=== PATIENT | male | born 1990 | race African-American/Black ===

== ENCOUNTER 2019-10-31 10:51 | Emergency (ER) | payer MEDICAID ==
[~2019-10-31] VITALS: Ht 185.4 cm; Wt 61.2 kg
--- NOTE | 2019-10-31 11:15 | NUR ---
ED Nurse Pt walked in from home c/o pressure when he urinated x 2 days. He is also complaining of rectal pain 5/10. Respirations are even and unlabored on room air. No SOB. Vital Signs stable as documented.
--- NOTE | 2019-10-31 11:29 | NUR ---
ED Nurse Note: voided urine sent to lab
[2019-10-31] MEDS ORDERED: Lidocaine 1% MPF 10mg/ml 5ml INJ ONE (11:30)
[2019-10-31] MEDS ORDERED: Azithromycin 250mg tab ORAL ONE (11:30)
[2019-10-31 11:38] VITALS: BP 118/69
[2019-10-31 11:43] LABS: APPEARANCE,URINE CLEAR; BILIRUBIN, URINE NEGATIVE (NEGATIVE); GLUCOSE, URINE (UA) NEGATIVE (NEGATIVE); KETONES,URINE NEGATIVE (NEGATIVE); LEUKOCYTE ESTERASE ,URINE NEGATIVE (NEGATIVE); NITRITE,URINE NEGATIVE (NEGATIVE); PH,URINE 5 (4.5-8.0); PROTEIN,URINE 1+ (NEGATIVE); UROBILINOGEN,URINE 4 MG/DL (0.0-1.0)
[2019-10-31 11:44] LABS: COLOR,URINE YELLOW
[2019-10-31] MEDS ORDERED: LD2JL30 TOPIC (12:21)
[2019-10-31] MEDS ORDERED: ANUSOL-HC30 GM RC (12:21)
[2019-10-31] MEDS ORDERED: COLACE100 MG ORAL (12:21)
--- NOTE | 2019-10-31 12:33 | NUR ---
ER DISCHARGE NOTE: Patient is cleared to be discharged per ERMD, pt is aox4, on room air, with stable vital signs. pt was given dc and prescription instructions, pt was able to verbalize understanding, pt id band removed. pt is able to ambulate with steady gait. pt took all belongings.
--- NOTE | 2019-10-31 12:37 | Emergency Room Report ---
History of Present Illness General Chief Complaint: Male Urogenital Problems Source: Patient Present Illness HPI 29-year-old male presents ED for evaluation. Complaining of pain to his rectal area. Has been there for 2 weeks. Painful with defecation. States he might be constipated as well. Noted some blood in his stool. Pain is dull, 8 out of 10, nonradiating. Also notes some dysuria. Denies any discharge. Concern for STD. States he is HIV positive. States he has had unprotected sex. Denies fevers or chills. Denies flank pain. No other aggravating relieving factors. Denies any other associated symptoms Allergies: Coded Allergies: No Known Allergies (Unverified , 10/31/19) Patient History Past Medical History: HIV Past Surgical History: none Pertinent Family History: none Reviewed Nursing Documentation: PMH: Agreed; PSxH: Agreed Nursing Documentation-PMH Past Medical History: No History, Except For Hx Cardiac Problems: Yes - HIV Review of Systems All Other Systems: negative except mentioned in HPI Physical Exam Vital Signs Date Time Temp Pulse Resp B/P (MAP) Pulse Ox O2 Delivery O2 Flow Rate FiO2 10/31/19 10:57 98.1 82 19 118/69 (85) 97 Room Air Sp02 EP Interpretation: reviewed, normal General Appearance: no apparent distress, alert, GCS 15, non-toxic Head: normocephalic, atraumatic Eyes: bilateral eye normal inspection, bilateral eye PERRL ENT: hearing grossly normal, normal pharynx, no angioedema, normal voice Neck: full range of motion, supple/symm/no masses Respiratory: chest non-tender, lungs clear, normal breath sounds, speaking full sentences Cardiovascular #1: regular rate, rhythm, no edema Cardiovascular #2: 2+ carotid (R), 2+ carotid (L), 2+ radial (R), 2+ radial (L) , 2+ dorsalis pedis (R), 2+ dorsalis pedis (L) Gastrointestinal: normal bowel sounds, non tender, soft, non-distended, no guarding, no rebound Rectal: other - anal fissure 3 oclock position Genitourinary: normal inspection, no CVA tenderness Musculoskeletal: back normal, normal range of motion, gait/station normal, non- tender Neurologic: alert, motor strength/tone normal, oriented x3, sensory intact, responsive, speech normal Psychiatric: judgement/insight normal, memory normal, mood/affect normal, no suicidal/homicidal ideation Reflexes: 3+ bicep (R), 3+ bicep (L), 3+ tricep (R), 3+ tricep (L), 3+ knee (R) , 3+ knee (L) Lymphatic: no adenopathy Medical Decision Making Diagnostic Impression: Primary Impression: Exposure to STD Additional Impression: Anal fissure ER Course Hospital Course 29-year-old male presents with dysuria, rectal pain. History of unprotected sex Differential diagnoses include: trichimonas, gonorrhea, chlamydia, UTI Clinical course Patient placed on stretcher. After initial history physical exam reveals a young male in no acute distress. On exam there is a anal fissure noted at the 3 o'clock position. No active bleeding. Remainder of exam unremarkable. UA negative Treat clinically for presumed STI. Given azithromycin/Rocephin in ED I discussed findings with patient. Will discharge to home with lidocaine jelly , Anusol cream, Colace. Safe for discharge for close outpatient follow-up. States that he is currently being set up for PMD Diagnosis -exposure to STD, anal fissure Stable and discharged home with prescriptions for Rx anusol, lidocaine jelly, colace. Instructed to followup with PMD. Return to ED if symptoms recur or worsen Labs Test 10/31/19 11:30 Urine Color Yellow Urine Appearance Clear Urine pH 5 (4.5-8.0) Urine Specific [place] 1.025 (1.005-1.035) Urine Protein 1+ (NEGATIVE) Urine Glucose (UA) Negative (NEGATIVE) Urine Ketones Negative (NEGATIVE) Urine Blood Negative (NEGATIVE) Urine Nitrite Negative (NEGATIVE) Urine Bilirubin Negative (NEGATIVE) Urine Urobilinogen 4 MG/DL (0.0-1.0) Urine Leukocyte Esterase Negative (NEGATIVE) Urine RBC 0-2 /HPF (0 - 0) Urine WBC 0-2 /HPF (0 - 0) Urine Squamous Epithelial Cells None /LPF (NONE/OCC) Urine Calcium Oxalate Crystals Occasional /LPF (NONE) Urine Bacteria None /HPF (NONE) Last Vital Signs Date Time Temp Pulse Resp B/P (MAP) Pulse Ox O2 Delivery O2 Flow Rate FiO2 10/31/19 11:38 98.1 75 19 118/69 97 Room Air Status: improved Disposition: HOME, SELF-CARE Condition: Stable Scripts Docusate Sodium* (COLACE*) 100 Mg Capsule 100 MG ORAL THREE TIMES A DAY, #30 CAP Prov: Bolivar Starks MD 10/31/19 Lidocaine HCL 2% Jelly* (Lidocaine Jelly 2%*) 5 Ml Jel.[email or web address] 5 ML TOPIC DAILY, #5 ML Prov: Bolivar Starks MD 10/31/19 Hydrocortisone Hc 2.5% Cream (ANUSOL-HC 2.5% CREAM) Y Cr 30 GM RC BID, #30 GM Prov: Bolivar Starks MD 10/31/19 Patient Instructions: Anal Fissure, Adult, [id number] Bolivar Starks MD Oct 31, 2019 12:37
== END 2019-10-31 12:35 | disposition home or self-care (01) ==
LOC: EDBD 10:51 → EMR 12:33
DX: K60.2 Anal fissure, unspecified (principal); Z20.2 Contact with and (suspected) exposure to infections with a predominantly sexual mode of transmission; R30.0 Dysuria; B20 Human immunodeficiency virus [HIV] disease
CPT/HCPCS: 81003; 96372; 96374; J0696; Q0144; Z7502; 99284

== ENCOUNTER 2019-12-31 23:24 | Emergency (ER) | payer MEDICAID ==
[~2019-12-31] VITALS: Ht 185.4 cm; Wt 60.3 kg
[~2019-12-31 23:24] MED LIST: ANUSOL-HC30 GM RC; COLACE100 MG ORAL; LD2JL30 TOPIC
--- NOTE | 2019-12-31 23:43 | NUR ---
ED Nurse Note: pt presents to ED c/o abd px, lightheadedness and feeling "jittery/anxious" x 3 days. pt reports his abd pain a 7/10 that comes and goes. pt also reports nausea without vomiting or diarrhea. pt denies any trauma or injury, has never experienced these symptoms before and did not take any medications for symptoms prior to arrival
[2019-12-31 23:45] VITALS: BP 114/77
--- NOTE | 2019-12-31 23:49 | Emergency Room Report ---
History of Present Illness General Chief Complaint: Abdominal Pain Source: Patient Present Illness HPI 29-year-old male with a history of HIV. His viral load is undetectable. His CD4 count is over 400. Patient presents with chief complaint of not feeling well. He said this been ongoing for 3 days. Decreased appetite. No fever chills. [place] nausea but no vomiting. [place] weak. Has some upset stomach. No cough or congestion. No pain. No discharge. Allergies: Coded Allergies: No Known Allergies (Unverified , 10/31/19) Patient History Past Medical History: see triage record, old chart reviewed, HIV Past Surgical History: other Pertinent Family History: none Social History: Denies: smoking Immunizations: other Reviewed Nursing Documentation: PMH: Agreed; PSxH: Agreed Nursing Documentation-PMH Hx Cardiac Problems: Yes - HIV Hx Gastrointestinal Problems: Yes - colitis Review of Systems Constitutional: Reports: malaise, weakness Eye: Denies: eye pain, blurred vision ENT: Denies: ear pain, nose congestion, throat swelling Respiratory: Denies: cough, shortness of breath Cardiovascular: Denies: chest pain, palpitations Gastrointestinal: Reports: nausea; Denies: abdominal pain, diarrhea, vomiting Musculoskeletal: Denies: back pain, joint pain Skin: Denies: rash Neurological: Denies: headache, numbness Endocrine: Denies: increased thirst, increased urine Hematologic/Lymphatic: Denies: easy bruising All Other Systems: negative except mentioned in HPI Physical Exam Vital Signs Date Time Temp Pulse Resp B/P (MAP) Pulse Ox O2 Delivery O2 Flow Rate FiO2 12/31/19 23:32 98.1 73 18 114/77 (89) 98 Room Air Vitals normal Sp02 EP Interpretation: reviewed, normal General Appearance: well appearing, no apparent distress, alert, thin Head: normocephalic, atraumatic Eyes: bilateral eye PERRL, bilateral eye EOMI ENT: hearing grossly normal, normal pharynx Neck: full range of motion, supple, no meningismus Respiratory: chest non-tender, lungs clear, normal breath sounds Cardiovascular #1: regular rate, rhythm, no murmur Gastrointestinal: non tender, no mass, no organomegaly, no bruit, non-distended , abnormal bowel sounds - Hyperactive Musculoskeletal: back normal, normal range of motion, gait/station normal Psychiatric: mood/affect normal Medical Decision Making Diagnostic Impression: Primary Impression: Weakness generalized ER Course She presents with generalized weakness. No obvious infection. No evidence of dehydration or anemia. He did say that occasionally get palpitation. Never had any work-up. Recommend that he follow-up with his primary care doctor for referral to see shredding machine operator for Holter monitor. Will discharge home. Last Vital Signs Date Time Temp Pulse Resp B/P (MAP) Pulse Ox O2 Delivery O2 Flow Rate FiO2 12/31/19 23:45 98.1 73 18 114/77 98 Room Air Status: improved Disposition: HOME, SELF-CARE Condition: Stable Additional Instructions: Follow-up with your doctor in 7 days. If you continue to have palpitations, you may need referral to see a shredding machine operator for Holter monitor. Return if symptoms worsen. Daniel Medina MD Dec 31, 2019 23:48
[2020-01-01 00:20] LABS: HEMATOCRIT 44.9 % (42.0-52.0); MEAN CORPUSCULAR VOLUME 92 FL (80-99); PLATELET COUNT 246 K/UL (150-450); RED CELL DISTRIBUTION WIDTH 10.6 % (11.6-14.8); WHITE BLOOD COUNT 4.4 K/UL (4.8-10.8)
[2020-01-01 00:22] LABS: APPEARANCE,URINE CLEAR; BILIRUBIN, URINE NEGATIVE (NEGATIVE); COLOR,URINE PALE YELLOW; GLUCOSE, URINE (UA) NEGATIVE (NEGATIVE); KETONES,URINE NEGATIVE (NEGATIVE); LEUKOCYTE ESTERASE ,URINE NEGATIVE (NEGATIVE); NITRITE,URINE NEGATIVE (NEGATIVE); PH,URINE 5 (4.5-8.0); PROTEIN,URINE NEGATIVE (NEGATIVE); UROBILINOGEN,URINE NORMAL MG/DL (0.0-1.0)
[2020-01-01 00:24] LABS: ANION GAP 8 mmol/L (5-15); BLOOD UREA NITROGEN 13 mg/dL (7-18); CALCIUM 9.5 MG/DL (8.5-10.1); CARBON DIOXIDE 28 MMOL/L (21-32); CHLORIDE 107 MMOL/L (98-107); CREATININE 0.7 MG/DL (0.55-1.30); POTASSIUM 4.5 MMOL/L (3.5-5.1); SODIUM 143 MMOL/L (136-145)
[2020-01-01 00:53] VITALS: BP 114/77
--- NOTE | 2020-01-01 00:53 | NUR ---
ED Nurse Note: Pt cleared by health care Provider for discharge. DC instructions was given and explained to pt and mother. both verbalized understanding of teachings. All medical devices such as ID band and IV site removed. Pt is AAO x4, ambulatory and left with all personal belongings.
== END 2020-01-01 00:53 | disposition home or self-care (01) ==
LOC: EMR 23:38
DX: R53.1 Weakness (principal); B20 Human immunodeficiency virus [HIV] disease
CPT/HCPCS: 36415; 80048; 81001; 85007; 85025; 96360; Z7502; 99284

== ENCOUNTER 2020-02-01 11:24 | Emergency (ER) | payer MEDICAID, OTHER ==
[~2020-02-01] VITALS: Ht 182.9 cm; Wt 59.9 kg
[2020-02-01 11:39] VITALS: BP 120/77
--- NOTE | 2020-02-01 11:41 | NUR ---
ED Nurse Note: Patient walked in to ER due to possible chlamydia infection and abdominal cramping. Patient reports last sexual contact was 4 weeks ago. Denies fever or chills. Patient presented AAO x4, VSS at this time.
[2020-02-01] MEDS ORDERED: Lidocaine 1% MPF 10mg/ml 5ml INJ ONE (11:45)
[2020-02-01] MEDS ORDERED: Azithromycin 250mg tab ORAL ONE (11:45)
--- NOTE | 2020-02-01 11:46 | Emergency Room Report ---
History of Present Illness General Chief Complaint: Male Urogenital Problems Source: Patient Present Illness HPI 29-year-old male presents with STD exposure 3 weeks prior to arrival patient reports intermittent abdominal cramps the patient reports that the partner tested positive for chlamydia patient wants treatment, no aggravating relieving factors cramps come and go mild severity no fevers no chills no dysuria no discharge patient presents for evaluation Allergies: Coded Allergies: No Known Allergies (Unverified , 10/31/19) COVID-19 Screening Contact w/high risk pt: No Recent Travel to affected area: No Experienced COVID-19 symptoms?: No Patient History Past Medical History: see triage record Social History: Reports: smoking Reviewed Nursing Documentation: PMH: Agreed; PSxH: Agreed Nursing Documentation-PMH Past Medical History: No History, Except For Hx Gastrointestinal Problems: Yes - colitis Review of Systems All Other Systems: negative except mentioned in HPI Physical Exam Vital Signs Date Time Temp Pulse Resp B/P (MAP) Pulse Ox O2 Delivery O2 Flow Rate FiO2 02/01/20 11:29 98.1 73 16 120/77 (91) 97 Room Air General Appearance: well appearing, no apparent distress Head: normocephalic, atraumatic Eyes: bilateral eye PERRL, bilateral eye EOMI ENT: hearing grossly normal, normal voice Neck: full range of motion, supple Respiratory: no respiratory distress, speaking full sentences Gastrointestinal: non tender, soft Neurologic: alert, normal gait Psychiatric: mood/affect normal Skin: no rash Medical Decision Making Diagnostic Impression: Primary Impression: Exposure to STD ER Course 29-year-old male presents with possible STD exposure will provide ceftriaxone and azithromycin patient has a PCP and will follow-up disposition home with return precautions Last Vital Signs Date Time Temp Pulse Resp B/P (MAP) Pulse Ox O2 Delivery O2 Flow Rate FiO2 02/01/20 11:39 98.1 16 120/77 97 Room Air 02/01/20 11:29 73 Disposition: HOME, SELF-CARE Condition: Stable Referrals: [facility]ERR[facility] (PCP) Patient Instructions: Chlamydia, Male Additional Instructions: The patient was provided with discharge instructions, notified to follow-up with a primary care doctor and or specialist in the next 24-48 hours, and to return to the ED if they have worsening of their symptoms. Please note that this report is being documented using [employer] technology. This can lead to erroneous entry secondary to incorrect interpretation by the dictating instrument. Sreedhar Raphael MD Feb 01, 2020 11:46
[2020-02-01 11:55] VITALS: BP 120/77
--- NOTE | 2020-02-01 11:56 | NUR ---
ED Nurse Note: Pt cleared by health care Provider for discharge. DC instructions/prescription was given and explained to pt and verbalized understanding of teachings. All medical deviecs such as ID band removed. Pt is AAO x4, ambulatory and left with all personal belongings.
== END 2020-02-01 11:56 | disposition home or self-care (01) ==
LOC: EMR 11:37
DX: Z20.2 Contact with and (suspected) exposure to infections with a predominantly sexual mode of transmission (principal); F17.200 Nicotine dependence, unspecified, uncomplicated
CPT/HCPCS: 96372; 96374; J0696; Q0144; Z7502; 99284